=== PATIENT | male | born 1990 | race Caucasian/White ===

== ENCOUNTER 2018-09-06 03:38 | Emergency (ER) | payer SELFPAY ==
[~2018-09-06] VITALS: Ht 175.3 cm; Wt 75.0 kg
[2018-09-06 04:08] VITALS: BP 144/78
== END 2018-09-06 04:52 | disposition left against medical advice (07) ==
LOC: EMS 03:38
DX: H92.01 Otalgia, right ear (principal); Z53.21 Procedure and treatment not carried out due to patient leaving prior to being seen by health care provider